=== PATIENT | female | born 1945 | race Caucasian/White ===

== ENCOUNTER 2021-04-05 18:40 | Emergency (ER) | payer MEDICARE, OTHER ==
[2021-04-05 19:42] LABS: BASOPHILS % (AUTO) 0.5 %; EOSINOPHILS # (AUTO) 0.1 10^3/uL (0.0-0.7); EOSINOPHILS % (AUTO) 0.9 %; HCT - HEMATOCRIT 32.5 % (37.0-47.0); HGB - HEMOGLOBIN 11.5 g/dL (12.0-16.0); LYMPHOCYTES # (AUTO) 1.3 10^3/uL (1.5-3.5); LYMPHOCYTES % (AUTO) 23.9 %; MEAN CORPUSCULAR HEMOGLOBIN 32.9 pg (27.0-31.0); MEAN CORPUSCULAR HGB CONC 35.4 g/dL (32.0-36.0); MEAN CORPUSCULAR VOLUME 92.9 fL (81.0-99.0); MEAN PLATELET VOLUME 8.7 fL (7.9-10.8); MONOCYTES # (AUTO) 0.5 10^3/uL (0.0-1.0); MONOCYTES % (AUTO) 9.7 %; NEUTROPHILS # (AUTO) 3.6 10^3/uL (1.5-6.6); NEUTROPHILS % (AUTO) 64.6 %; PLT - PLATELET COUNT 249 10^3/uL (130-450); RED CELL DISTRIBUTION WIDTH 11.9 % (12.0-15.0); WHITE BLOOD COUNT 5.6 x10^3/uL (4.8-10.8)
--- NOTE | 2021-04-05 19:49 | ED Physician Documentation ---
PD HPI CHEST PAIN - Stated complaint Stated Complaint: HEART FLUTTER,HOT,LIGHTHEADED - Chief complaint Chief Complaint: Cardiac - History obtained from History obtained from: Patient - Additional information Additional information: 76-year-old woman with history of left bundle branch block but no other heart problems had diarrhea all day and then developed about 1 episode of heart flutters that made her anxious. There is no persistent chest pain or shortness of breath but still having some funny feelings in her chest. No recent abx/camping/travel. Review of Systems Ten Systems: 10 systems reviewed and negative Constitutional: reports: Reviewed and negative Eyes: reports: Reviewed and negative Ears: reports: Reviewed and negative PD PAST MEDICAL HISTORY - Past Medical History Past Medical History: Yes Respiratory: Asthma, COPD - Past Surgical History Past Surgical History: Yes - Present Medications Home Medications: Ambulatory Orders Medication Instructions Recorded Confirmed Aspirin 81 mg PO DAILY 03/27/14 04/05/21 Albuterol Sulf [Ventolin Hfa 1 puffs INH Q4HR PRN 04/05/21 04/05/21 Inhaler] - Allergies Allergies/Adverse Reactions: Allergies Allergy/AdvReac Type Severity Reaction Status Date / Time Sulfa (Sulfonamide Allergy Itching Verified 03/27/14 19:15 Antibiotics) - Social History Does the pt smoke?: Yes Smoking Status: Current every day smoker Does the pt drink ETOH?: No Does the pt have substance abuse?: No PD ED PE NORMAL - Vitals Vital signs reviewed: Yes - General General: Alert and oriented X 3, No acute distress - HEENT HEENT: PERRL, EOMI - Neck Neck: Supple, no meningeal sign, No bony TTP - Cardiac Cardiac: RRR, No murmur - Respiratory Respiratory: No respiratory distress, Clear bilaterally - Abdomen Abdomen: Non tender - Back Back: No CVA TTP, No spinal TTP - Derm Derm: Normal color, Warm and dry - Extremities Extremities: No edema, No calf tenderness / cord - Neuro Neuro: Alert and oriented X 3, Normal speech Results - Vitals Vitals: Vital Signs - 24 hr 04/05/21 04/05/21 19:10 21:19 Temperature 36.6 C Heart Rate 76 76 Respiratory 15 24 Rate Blood Pressure 153/53 H 156/69 H O2 Saturation 99 99 Oxygen O2 Source Room air - EKG (time done) 1917 Rate: Rate (enter#) (78) Rhythm: NSR, LAE [place]: Normal Intervals: LBBB QRS: LVH Ischemia: Normal ST segments Computer interpretation: Agree with computer - Labs Labs: Laboratory Tests 04/05/21 04/05/21 04/05/21 19:30 19:30 19:30 WBC 5.6 RBC 3.50 L Hgb 11.5 L Hct 32.5 L MCV 92.9 MCH 32.9 H MCHC 35.4 RDW 11.9 L Plt Count 249 MPV 8.7 Neut # (Auto) 3.6 Lymph # (Auto) 1.3 L [place] # (Auto) 0.5 Eos # (Auto) 0.1 Baso # (Auto) 0.0 Absolute Nucleated RBC 0.00 Nucleated RBC % 0.0 Sodium 123 L Potassium 3.7 Chloride 89 L Carbon Dioxide 24 Anion Gap 10.0 BUN 9 Creatinine 0.9 Estimated GFR (MDRD) 61 L Glucose 112 H Calcium 8.7 Total Bilirubin 0.6 AST 26 ALT 20 Alkaline Phosphatase 41 L Troponin I High Sens 10.4 Total Protein 6.8 Albumin 4.3 Globulin 2.5 Albumin/Globulin Ratio 1.7 Lipase 26 PD MEDICAL DECISION MAKING - ED course ED course: 76-year-old woman presents with acute diarrhea today and she supplemented with significant free water intake. Then started to feel palpitations. She probably has a fairly acute hyponatremia and given that it is acute she was given a liter of saline with resolution in her symptoms. Further history, she is been having on and off diarrhea for 3 months. She had a CAT scan for which she says had incidental findings of a kidney stone and contracted gallbladder. Discussed with her that she should probably have a colonoscopy since its been 7 years since her last. Departure - Departure Disposition: 01 Home, Self Care Clinical Impression: Heart palpitations, Hyponatremia Condition: Good Record reviewed to determine appropriate education?: Yes Instructions: ED Hyponatremia Comments: You were seen today for palpitations which I suspect are due to an acutely lowered sodium level after an episode of diarrhea today and increased free water intake. Try to mix water with sources of sodium such as broth or Gatorade. Probably should have labs rechecked with your primary care physician in a week or 2 and repeat colonoscopy within the next month or 2. Return if worsening.
[2021-04-05 19:56] LABS: ALBUMIN 4.3 g/dL (3.2-5.5); ALBUMIN/GLOBULIN RATIO 1.7 (1.0-2.2); BILIRUBIN,TOTAL 0.6 mg/dL (0.2-1.0); CALCIUM 8.7 mg/dL (8.5-10.3); CREATININE 0.9 mg/dL (0.4-1.0); POTASSIUM 3.7 mmol/L (3.5-5.0); TOTAL PROTEIN 6.8 g/dL (6.7-8.2)
[2021-04-05] MEDS ORDERED: SODIUM CHLORIDE 0.9% 1,000 ML IV STA (20:11)
[2021-04-05] MEDS ORDERED: LOPERAMIDE 2 MG CAPSULE PO STA (20:11)
[2021-04-05 22:37] VITALS: BP 143/70
== END 2021-04-05 22:37 | disposition home or self-care (01) ==
LOC: ED 18:40
DX: R00.2 Palpitations (principal); E87.1 Hypo-osmolality and hyponatremia; R19.7 Diarrhea, unspecified; J44.9 Chronic obstructive pulmonary disease, unspecified; F17.200 Nicotine dependence, unspecified, uncomplicated; Z79.82 Long term (current) use of aspirin
CPT/HCPCS: 36415; 80053; 83690; 84484; 85025; 93005; 99284; A9270